=== PATIENT | male | born 1950 | race Caucasian/White ===

== ENCOUNTER → 2024-06-08 10:28 | Outpatient (CLI) | payer MEDICARE, OTHER, SELFPAY | PROVIDERS: PCP Family Medicine; Referring Provider Internal Medicine Hematology & Oncology; Visit Provider Surgery | DX: M51.360 Other intervertebral disc degeneration, lumbar region with discogenic back pain only (principal); M54.59 Other low back pain; C90.02 Multiple myeloma in relapse | CPT/HCPCS: 99204; 99212 ==

== ENCOUNTER → 2024-06-08 12:16 | Outpatient (CLI) | payer MEDICARE, OTHER, SELFPAY ==
--- NOTE | 2024-06-08 12:18 | DI.RAD.S_ITS ---
PROCEDURE: XR CHEST 2V INDICATIONS: Hyperbaric treatment TECHNIQUE: 2 views of the chest were acquired. COMPARISON: None. FINDINGS: Heart, mediastinum and pulmonary vascular: Heart is mildly enlarged. Right IJ Port-A-Cath tip overlies the SVC right atrial junction in satisfactory position. Mediastinum is unremarkable. Pulmonary vascular is normal. Lungs: Clear Pleural spaces: Normal-no effusions or pneumothorax. Right diaphragm mildly elevated Bones and soft tissues: Mild calcific tendinitis distal right rotator cuff appreciated. Severe compression fractures of the T12 and L2 vertebral bodies appreciated IMPRESSION: No acute cardiopulmonary disease Dictated by: Joni Neville M.D. on 06/09/2024 at 10:03 Approved by: Joni Neville M.D. on 06/09/2024 at 10:05
== END ==
PROVIDERS: PCP Family Medicine; Referring Provider Surgery; Visit Provider Surgery
DX: C90.02 Multiple myeloma in relapse (principal); I51.7 Cardiomegaly; M75.31 Calcific tendinitis of right shoulder; M48.54XA Collapsed vertebra, not elsewhere classified, thoracic region, initial encounter for fracture; M51.360 Other intervertebral disc degeneration, lumbar region with discogenic back pain only; Z95.828 Presence of other vascular implants and grafts
CPT/HCPCS: 71046; 99212

== ENCOUNTER → 2024-07-17 09:59 | Outpatient (CLI) | payer SELFPAY ==
--- NOTE | 2024-07-17 | OV.WND_ITS ---
PROGRESS NOTE DETAILS PATIENT NAME: NURA BRANTLEY PATIENT NUMBER: [id number] CLINICIAN: YOKO THOMAS R.N. PATIENT DATE OF : 1950 PHYSICIAN / CEO AND PRESIDENT: ELIZA GILL PATIENT SUBJECTIVE CHIEF COMPLAINT THIS INFORMATION WAS OBTAINED FROM THE PATIENT. HYPERBARIC TREATMENT. ALLERGIES NO KNOWN ALLERGIES HPI THIS INFORMATION WAS OBTAINED FROM THE PATIENT. THE FOLLOWING HPI ELEMENTS WERE DOCUMENTED FOR THE PATIENT'S WOUND: CONTEXT: DEGENERATIVE LUMBAR SPINE DISEASE THE PATIENT IS A 73-YEAR-OLD MALE WITH HYPERTENSION AND MULTIPLE MYELOMA WHO RETURNS TODAY FOR A READMISSION TO THE WOUND CENTER FOR CONSIDERATION OF HYPERBARIC OXYGEN THERAPY FOR TREATMENT OF DEGENERATIVE LUMBAR SPINE DISEASE . THE PATIENT DOES HAVE CHRONIC BACK PAIN WHICH HAS BEEN GRADUALLY WORSENING. HE IS CURRENTLY RECEIVING CARFILZOMIB AND DARATUMUMAB FOR TREATMENT OF MULTIPLE MYELOMA. THE PATIENT REPORTS A GOOD APPETITE AND DENIES HAVING ANY OTHER RECENT CHANGES IN HIS OVERALL HEALTH. BACK PAIN OCCURS ON A DAILY BASIS AND LIMITS HIS ACTIVITY. NO CHANGES IN OVERALL HEALTH SINCE LAST VISIT. THE PATIENT'S ONCOLOGIST IS IN AGREEMENT WITH PROCEEDING WITH HYPERBARIC OXYGEN THERAPY. LABS: 06/08/24: CXR: NO ACUTE CARDIOPULMONARY DISEASE 06/05/24: WBC 5.6, HEMOGLOBIN 13.1, HCT 39.1, P LT 160, ELECTROLYTES UNREMARKABLE, LFTS NORMAL, BUN 32.6, CREATININE 1.46 05/19/24: MRI: NO ACTIVE MULTIPLE MYELOMA CAN BE SEEN WITHIN THE LUMBAR SPINE, NUMEROUS LEVELS OF COMPRESSION DEFORMITY, MULTIPLE LEVELS OF LUMBAR SPINE DEGENERATIVE CHANGE WHICH ARE PROGRESSED AT SEVERAL LEVELS COMPARED TO 2020 FAMILY HISTORY THIS INFORMATION WAS OBTAINED FROM THE CHART, PATIENT. CANCER- MOTHER, SIBLING DIABETES- PATERNAL GRANDPARENTS, SIBLING HEART DISEASE- FATHER SOCIAL HISTORY THIS INFORMATION WAS OBTAINED FROM THE CHART, PATIENT. 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 PATIENT HAS A MEDICAL HISTORY OF: CATARACT CHRONIC BACK PAIN COLON POLYP HYPERTENSION MULTIPLE MYELOMA PRECANCEROUS SKIN LESION VISUAL IMPAIRMENT ADDITIONAL INFORMATION DOES PATIENT HAVE A HISTORY OF CANCER? YES? COMPLETE ALL QUESTIONS.: YES LOCATION OF CANCER: MULTIPLE MYELOMA LIST TREATING ONCOLOGIST: [facility] SURGICAL HISTORY THIS INFORMATION WAS OBTAINED FROM THE CHART, PATIENT. PATIENT HAS A SURGICAL HISTORY OF: BONE MARROW TRANSPLANT- CATARACT EXTRACTION W/ INTRAOCULAR LENS IMPLANT- (BILAT) DE COLONOSCOPY W/BIOPSY SINGLE/MULTIPLE- DE INSJ TUNNELED CTR VAD W/SUBQ PORT AGE 5 YR/- (POWER PORT PLACEMENT) REFRACTIVE SURGERY- (BILATERAL) TUNNELED VENOUS CATHETER PLACEMENT- VASECTOMY- REVIEW OF SYSTEMS (ROS) THIS INFORMATION WAS OBTAINED FROM THE PATIENT. COMPLAINTS AND SYMPTOMS PATIENT COM PLAINS OF: CO-MORBID CONDITIONS: CANCER WITH CONCURRENT CHEMOTHERAPY ONCOLOGIC: CURRENT CANCER TREATMENT PATIENT DENIES COM PLAINTS OR SY M PTOM S RELATED TO: CARDIOVASCULAR (CENTRAL): CHEST PAIN, DYSPNEA ON EXERTION CONSTITUTIONAL SYMPTOMS (GENERAL HEALTH): CHILLS, FEVER, LOSS OF APPETITE EAR/NOSE/MOUTH/THROAT: DIFFICULT CLEARING EARS, EAR PAIN EYES: BLURRED VISION, VISION CHANGES RESPIRATORY: COUGH, SHORTNESS OF BREATH GENERAL NOTES UP TO DATE PER PT. OBJECTIVE VITALS NURA BRANTLEY [id number] 1950 HEIGHT/LENGTH: 66 IN (167.64 CM), WEIGHT: 160.01 LBS (72.73 KGS), BMI: 25.8, TEMPERATURE: 98.4 ?F (36.89 ?C), PULSE: 76 BPM, RESPIRATORY RATE: 16 BREATHS/MIN, BLOOD PRESSURE: 158/84 MMHG, PULSE OXIMETRY: 98 %. PHYSICAL EXAM CONSTITUTIONAL: VITAL SIGNS REVIEWED AND NOTED. WELL DEVELOPED, WELL NOURISHED, AND IN NO ACUTE DISTRESS. ALERT AND ORIENTED X3. EYES: PUPILS ARE EQUAL, ROUND, AND REACTIVE TO LIGHT. SYMMETRIC GAZE. EARS, NOSE, MOUTH, AND THROAT: EXTERNAL INSPECTION OF EARS AND NOSE APPEAR NORMAL. EXTERNAL AUDITORY CANALS PARTIALLY OCCLUDED BY CERUMEN. RESPIRATORY: EVEN RESPIRATIONS WITHOUT USE OF ACCESSORY MUSCLES. NO INTERCOASTAL RETRACTIONS NOTED. EVEN AND NON LABORED RESPIRATION. CLEAR TO AUSCULTATION. CARDIOVASCULAR: REGULAR RATE AND RHYTHM. INTEGUMENTARY (HAIR, SKIN): NO ERYTHEMA. NO SWELLING OR TENDERNESS. SKIN WARM AND DRY. NO RASHES. NEUROLOGICAL: SENSATION: SYMMETRIC FUNCTION BY INFORMAL OBSERVATION. PSYCHIATRIC: ORIENTATION TO TIME, PLACE AND PERSON: NORMAL AFFECT WITH NORMAL THOUGHT PATTERN. 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 I HAVE EXPLAINED TO THE PATIENT THAT THERE IS A THEORETICAL BENEFIT FOR RECEIVING HYPERBARIC OXYGEN THERAPY FOR THE TREATMENT OF DEGENERATIVE SPINE DISEASE HOWEVER NO BENEFICIAL CLINICAL EFFECT HAS BEEN DEMONSTRATED. THEORETICAL BENEFIT: LABORATORY STUDIES HAVE SHOWN INCREASE OF ANABOLIC FACTOR/ CATABOLIC FACTOR RATIO IN NUCLEUS PULPOSUS CELLS WHICH MAY PROVIDE A THERAPEUTIC APPROACH TO SLOW THE COURSE OF INTERVERTEBRAL DISK DEGENERATION. HYPERBARIC OXYGEN THERAPY PROMOTES HEALING BY ENCOURAGING FORMATION OF NEW COLLAGEN, STIMULATING STEM CELLS, REDUCING INFLAMMATION, AND STIMULATING ANGIOGENESIS. SEVERAL CLINICAL STUDIES HAVE INDICATED DECREASED NEUROPATHIC PAIN. RISKS AND COSTS: HYPERBARIC OXYGEN THERAPY IS GENERALLY SAFE BUT IS NOT WITHOUT RISK. THE RISKS OF HBOT PRIMARILY INVOLVE MIDDLE EAR OR SINUS BAROTRAUMA, BUT THEY MAY ALSO INCLUDE CLAUSTROPHOBIA, ANXIETY, SEIZURES, PNEUMOTHORAX, AND REVERSIBLE OCULAR-RELATED CHANGES. THERE IS ALSO A SLIGHT RISK OF FIRE OR . HYPERBARIC OXYGEN THERAPY FOR TREATMENT OF DEGENERATIVE SPINE DISEASE IS NOT COVERED BY INSURANCE AND IS ASSOCIATED WITH SIGNIFICANT COST. THE PATIENT APPEARED TO UNDERSTAND ALL OF THESE FACTORS AND IS INTERESTED IN PROCEEDING WITH HYPERBARIC OXYGEN THERAPY. HE UNDERSTANDS THAT HE MAY NOT RECEIVE ANY BENEFICIAL EFFECTS FROM TREATMENT. NURA BRANTLEY [id number] 1950 PLAN ADDITIONAL ORDERS: FOLLOW-UP APPOINTMENTS OTHER ORDERS: - PLEASE HAVE EARS FLUSHED PRIOR TO BEGINNING TREATMENT. YOU MAY USE A PRODUCT CALLED DEBROX TO HELP. SCRIBING ATTESTATION I ATTEST, THE NURSE, THAT I SCRIBED THESE ORDERS FOR THE WOUND CARE PROVIDER. PROVIDER REVIEW AND ATTESTATION: REVIEWED AND EVALUATED LABS. REVIEWED HOSPITAL RECORDS. DISCUSSED THE PLAN OF CARE @ BEDSIDE WITH - THE PATIENT I AGREE AND ATTEST TO THE ABOVE INFORMATION PROVIDED FROM OTHER LICENSED PROFESSIONALS. HBO2 THERAPY-OTHER INDICATION INDICATION: - LUMBAR DEGENERATION RELATED TO MULTIPLE MYELOMA OBTAIN CHEST X-RAY. - DONE 06/08/24 USE TREATMENT PROTOCOL (INCLUDE DB X MINUTES): - 2.0 ATAX 90 MINS TOTAL # OF HBO TREATMENTS: - 30 ASCENT TIME: 1.0 PSI/MINUTE MAY ADVANCE TO 1.5PSI/MINUTE TOLERATED. DESCENT TIME: 1.0 PSI/MINUTE MAY ADVANCE TO 1.5PSI/MINUTE TOLERATED. PRE AND POST VITAL SIGNS FOR EACH TREATMENT. PLAN OF CARE: 01. ENSURE/ESTABLISH OPTIMAL BLOOD FLOW : - REVIEWED, NOT APPLICABLE 02. ASSESS FOR/TREAT INFECTION : - REVIEWED, NOT APPLICABLE 03. DEBRIDE WEEKLY OR MORE OFTEN PRN : - REVIEWED, NOT APPLICABLE 04. OPTIMIZE GLUCOSE CONTROL AND NUTRITION : - COMPLETE A NUTRITION RISK ASSESSMENT. STATUS: COMPLETED DATE: 07/17/2024 05. OFFLOADING PLAN : - REVIEWED, NOT APPLICABLE 06. OPTIMIZE HOST FACTORS: - REVIEWED, NOT APPLICABLE 07. DRESSING SELECTION : - REVIEWED, NOT APPLICABLE 08. ADVANCED MODALITIES : - EVALUATE FOR APPROPRIATENESS OF HYPERBARIC OXYGEN THERAPY. STATUS: COMPLETED DATE: 07/17/2024 09. FALL PREVENTION : - COMPLETE FALL ASSESSMENT. STATUS: COMPLETED DATE: 07/17/2024 10. PAIN MANAGEMENT : - COMPLETE PAIN ASSESSMENT STATUS: COMPLETED DATE: 07/17/2024 11. MEASURABLE GOALS FOR WOUND HEALING AND/OR HYPERBARIC OXYGEN THERAPY : - IMPROVE QUALITY OF LIFE STATUS: INITIATED DATE: 07/17/2024 12. DURATION/FREQUENCY OF WOUND CARE VISITS : - 1X WEEKLY FOR 30 DAYS - WEDNESDAY - WEDNESDAY FOR HBOT. STATUS: INITIATED DATE: 07/17/2024 NURA BRANTLEY [id number] 1950 ELECTRONIC SIGNATURE(S) SIGNED BY: DATE: ELIZA GILL MD 07/17/2024 10:17:22 (PT) ENTERED BY: ELIZA GILL MD ON 07/17/2024 10:16:20 (PT) NURA BRANTLEY [id number] 1950
== END ==
PROVIDERS: PCP Family Medicine; Referring Provider Family Medicine; Visit Provider Surgery
DX: M51.360 Other intervertebral disc degeneration, lumbar region with discogenic back pain only (principal); C90.02 Multiple myeloma in relapse

== ENCOUNTER → 2024-07-17 11:43 | Outpatient (CLI) | payer MEDICARE, OTHER, SELFPAY | PROVIDERS: PCP Family Medicine; Referring Provider Family Medicine; Visit Provider Surgery | DX: M51.360 Other intervertebral disc degeneration, lumbar region with discogenic back pain only (principal); C90.02 Multiple myeloma in relapse | CPT/HCPCS: 99212; 99213 ==

== ENCOUNTER → 2024-07-18 16:19 | Outpatient (CLI) | payer SELFPAY | PROVIDERS: PCP Family Medicine; Referring Provider Family Medicine; Visit Provider Surgery | DX: M51.360 Other intervertebral disc degeneration, lumbar region with discogenic back pain only (principal); C90.02 Multiple myeloma in relapse ==

== ENCOUNTER → 2024-07-19 09:52 | Outpatient (CLI) | payer SELFPAY ==
--- NOTE | 2024-07-19 | OV.WND_ITS ---
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 PRE- TREATMENT VITAL SIGNS WERE: TIME VITALS TAKEN: 09:50, BLOOD PRESSURE: 154/86 MMHG, PULSE: 68 BPM, RESPIRATORY RATE: 16 BREATHS/MIN, TEMPERATURE: 98.1 ?F, PULSE OXIMETRY: 98 %. THE TREATMENT PROTOCOL PROVIDED WAS 2.0 DB X 90 MINUTES W/ 100% OXYGEN AND NO AIR BREAKS. THE DIVE RATE DOWN WAS 1.0 PSI / MINUTE. THE DIVE RATE UP WAS 1.0 PSI / MINUTE. THE TOTAL TREATMENT LENGTH WAS 120 MINUTES. POST-TREATMENT VITAL SIGNS WERE: TIME VITALS TAKEN: 12:00, BLOOD PRESSURE: 147/90 MMHG, PULSE: 78 BPM, RESPIRATORY RATE: 16 BREATHS/MIN, TEMPERATURE: 98.3 ?F, PULSE OXIMETRY: 100 %. NO ADVERSE EVENTS WERE ENCOUNTERED. PHYSICIAN/RELAY REPAIRER NOTES: THE PATIENT TOLERATED TREATMENT WITHOUT ANY DIFFICULTY. I WAS PRESENT AND IMMEDIATELY AVAILABLE THROUGHOUT THE TREATMENT. PLAN TO CONTINUE HYPERBARIC OXYGEN THERAPY. GENERAL NOTES INDICATION: - LUMBAR DEGENERATION RELATED TO MULTIPLE MYELOMA PT ARRIVED IN STABLE CONDITION; PRETREATMENT CHECKLIST COMPLETED WITHOUT COMPLICATIONS. PT COMPLETED TREATMENT WITHOUT COMPLAINT, LEFT IN STABLE CONDITION. ADDITIONAL INFORMATION PHYSICIAN WAS READILY AVAILABLE DURING THE ENTIRE TREATMENT.: YES NURA BRANTLEY [id number] 1950 ELECTRONIC SIGNATURE(S) SIGNED BY: DATE: ELIZA GILL MD 07/19/2024 15:51:00 (PT) ENTERED BY: ELIZA GILL MD ON 07/19/2024 15:48:47 (PT) NURA BRANTLEY [id number] 1950
== END ==
PROVIDERS: PCP Family Medicine; Referring Provider Family Medicine; Visit Provider Surgery
DX: M51.360 Other intervertebral disc degeneration, lumbar region with discogenic back pain only (principal); C90.02 Multiple myeloma in relapse

== ENCOUNTER → 2024-07-20 10:53 | Outpatient (CLI) | payer SELFPAY | PROVIDERS: PCP Family Medicine; Referring Provider Family Medicine; Visit Provider Surgery | DX: M51.360 Other intervertebral disc degeneration, lumbar region with discogenic back pain only (principal); C90.02 Multiple myeloma in relapse ==

== ENCOUNTER → 2024-07-21 10:43 | Outpatient (CLI) | payer SELFPAY | PROVIDERS: PCP Family Medicine; Referring Provider Family Medicine; Visit Provider Physician Assistant | DX: M51.360 Other intervertebral disc degeneration, lumbar region with discogenic back pain only (principal); C90.02 Multiple myeloma in relapse ==

== ENCOUNTER → 2024-07-24 09:51 | Outpatient (CLI) | payer SELFPAY | PROVIDERS: PCP Family Medicine; Referring Provider Family Medicine; Visit Provider Surgery | DX: M51.360 Other intervertebral disc degeneration, lumbar region with discogenic back pain only (principal); C90.02 Multiple myeloma in relapse ==

== ENCOUNTER → 2024-07-25 09:52 | Outpatient (CLI) | payer SELFPAY | PROVIDERS: PCP Family Medicine; Referring Provider Family Medicine; Visit Provider Surgery | DX: M51.360 Other intervertebral disc degeneration, lumbar region with discogenic back pain only (principal); C90.02 Multiple myeloma in relapse ==

== ENCOUNTER → 2024-07-26 10:00 | Outpatient (CLI) | payer SELFPAY | PROVIDERS: PCP Family Medicine; Referring Provider Family Medicine; Visit Provider Surgery | DX: M51.360 Other intervertebral disc degeneration, lumbar region with discogenic back pain only (principal); C90.02 Multiple myeloma in relapse ==

== ENCOUNTER → 2024-07-27 10:18 | Outpatient (CLI) | payer SELFPAY | PROVIDERS: PCP Family Medicine; Referring Provider Family Medicine; Visit Provider Surgery | DX: M51.360 Other intervertebral disc degeneration, lumbar region with discogenic back pain only (principal); C90.02 Multiple myeloma in relapse ==

== ENCOUNTER → 2024-07-28 09:43 | Outpatient (CLI) | payer SELFPAY | PROVIDERS: PCP Family Medicine; Referring Provider Family Medicine; Visit Provider Surgery | DX: M51.360 Other intervertebral disc degeneration, lumbar region with discogenic back pain only (principal); C90.02 Multiple myeloma in relapse ==

== ENCOUNTER → 2024-08-01 10:43 | Outpatient (CLI) | payer SELFPAY | PROVIDERS: PCP Family Medicine; Referring Provider Family Medicine; Visit Provider Physician Assistant | DX: M51.360 Other intervertebral disc degeneration, lumbar region with discogenic back pain only (principal); C90.02 Multiple myeloma in relapse | CPT/HCPCS: 99183; G0277 ==

== ENCOUNTER → 2024-08-02 09:57 | Outpatient (CLI) | payer SELFPAY | PROVIDERS: PCP Family Medicine; Referring Provider Family Medicine; Visit Provider Physician Assistant | DX: M51.360 Other intervertebral disc degeneration, lumbar region with discogenic back pain only (principal); C90.02 Multiple myeloma in relapse | CPT/HCPCS: 99183; G0277 ==

== ENCOUNTER → 2024-08-03 10:43 | Outpatient (CLI) | payer SELFPAY | PROVIDERS: PCP Family Medicine; Referring Provider Family Medicine; Visit Provider Physician Assistant | DX: M51.360 Other intervertebral disc degeneration, lumbar region with discogenic back pain only (principal); C90.02 Multiple myeloma in relapse | CPT/HCPCS: 99183; G0277 ==

== ENCOUNTER → 2024-08-04 08:52 | Outpatient (CLI) | payer SELFPAY ==
--- NOTE | 2024-08-04 | OV.WND_ITS ---
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 PRE- TREATMENT VITAL SIGNS WERE: TIME VITALS TAKEN: 08:50, BLOOD PRESSURE: 167/77 MMHG, PULSE: 65 BPM, RESPIRATORY RATE: 16 BREATHS/MIN, TEMPERATURE: 97.7 ?F, PULSE OXIMETRY: 98 %. THE TREATMENT PROTOCOL PROVIDED WAS 2.0 DB X 90 MINUTES W/ 100% OXYGEN AND NO AIR BREAKS. THE DIVE RATE DOWN WAS 1.0 PSI / MINUTE. THE DIVE RATE UP WAS 1.0 PSI / MINUTE. THE TOTAL TREATMENT LENGTH WAS 120 MINUTES. POST-TREATMENT VITAL SIGNS WERE: TIME VITALS TAKEN: 11:00, BLOOD PRESSURE: 150/86 MMHG, PULSE: 63 BPM, RESPIRATORY RATE: 16 BREATHS/MIN, TEMPERATURE: 97.7 ?F, PULSE OXIMETRY: 100 %. NO ADVERSE EVENTS WERE ENCOUNTERED. PHYSICIAN/CLAY MIXER NOTES: THE PATIENT TOLERATED TREATMENT WITHOUT ANY DIFFICULTY. I WAS PRESENT AND IMMEDIATELY AVAILABLE THROUGHOUT THE TREATMENT. PLAN TO CONTINUE HYPERBARIC OXYGEN THERAPY. GENERAL NOTES INDICATION: - LUMBAR DEGENERATION RELATED TO MULTIPLE MYELOMA PT ARRIVED IN STABLE CONDITION; PRETREATMENT CHECKLIST COMPLETED WITHOUT COMPLICATIONS. PT COMPLETED TREATMENT WITHOUT COMPLAINT, LEFT IN STABLE CONDITION. ADDITIONAL INFORMATION PHYSICIAN WAS READILY AVAILABLE DURING THE ENTIRE TREATMENT.: YES NURA BRANTLEY [id number] 1950 ELECTRONIC SIGNATURE(S) SIGNED BY: DATE: YISSEL LYNN PA-C 08/04/2024 14:19:28 (PT) ENTERED BY: YISSEL LYNN PA-C ON 08/04/2024 14:19:19 (PT) NURA BRANTLEY [id number] 1950
== END ==
PROVIDERS: PCP Family Medicine; Referring Provider Family Medicine; Visit Provider Physician Assistant
DX: M51.360 Other intervertebral disc degeneration, lumbar region with discogenic back pain only (principal); C90.02 Multiple myeloma in relapse

== ENCOUNTER → 2024-08-07 09:47 | Outpatient (CLI) | payer SELFPAY | PROVIDERS: PCP Family Medicine; Referring Provider Family Medicine; Visit Provider Surgery | DX: M51.360 Other intervertebral disc degeneration, lumbar region with discogenic back pain only (principal); C90.02 Multiple myeloma in relapse ==

== ENCOUNTER → 2024-08-08 10:24 | Outpatient (CLI) | payer SELFPAY | PROVIDERS: PCP Family Medicine; Referring Provider Family Medicine; Visit Provider Surgery | DX: M51.360 Other intervertebral disc degeneration, lumbar region with discogenic back pain only (principal); C90.02 Multiple myeloma in relapse | CPT/HCPCS: 99183; G0277 ==

== ENCOUNTER → 2024-08-09 09:03 | Outpatient (CLI) | payer SELFPAY | PROVIDERS: PCP Family Medicine; Referring Provider Internal Medicine Hematology & Oncology; Visit Provider Surgery | DX: M51.360 Other intervertebral disc degeneration, lumbar region with discogenic back pain only (principal); C90.02 Multiple myeloma in relapse ==

== ENCOUNTER → 2024-08-10 09:48 | Outpatient (CLI) | payer SELFPAY | PROVIDERS: PCP Family Medicine; Referring Provider Family Medicine; Visit Provider Surgery | DX: M51.360 Other intervertebral disc degeneration, lumbar region with discogenic back pain only (principal); C90.02 Multiple myeloma in relapse | CPT/HCPCS: 99183; 99211; 99213; G0277 ==

== ENCOUNTER → 2024-08-10 11:16 | Outpatient (CLI) | payer MEDICARE, OTHER, SELFPAY | PROVIDERS: PCP Family Medicine; Referring Provider Family Medicine; Visit Provider Surgery | DX: M51.360 Other intervertebral disc degeneration, lumbar region with discogenic back pain only (principal); C90.02 Multiple myeloma in relapse | CPT/HCPCS: 99183; 99211; 99213; G0277 ==